=== PATIENT | male | born 1965 | race Caucasian/White ===

== ENCOUNTER 2017-10-04 15:02 | Emergency (ER) | payer OTHER ==
[~2017-10-04] VITALS: Ht 170.1 cm; Wt 63.5 kg
[~2017-10-04 15:02] MED LIST: ACIDOPHILUS1 CAP PO; ATIVAN0.5 MG PO; AUGMENTIN XR 101 TE2 PO; BUSPIRONE30 MG PO; CEFADROXIL500 M1 PO; CEPHALEXIN500 M1 PO; DELTASONE20 M1 PO; DITROPAN XL5 MG PO; FLAGYL500 MG PO; FLOMAX0.4 MG PO; HABITROL21 MG/24 H TD; LISINOPRIL10 M1 PO; LISINOPRIL5 MG PO; MOTRIN 600 MG E4 TAB PO; MULTI-VIT W/C1 CTB PO; NORMAL SALINE1000 M1 IR; OXYCODONE HCL5 M1 PO; OXYCODONE5 M1 PO; PERCOCET 325 MG1 TA2 PO; PERCOCET 325 MG1 TA5 PO; PYRIDIUM200 M1 PO; TRAMADOL HCL50 MG PO; ULTRAM50 MG PO; ZOVIRAX400 MG PO; Zofran4 MG PO
[2017-10-04 15:08] VITALS: BP 136/91
[2017-10-04] MEDS ORDERED: ZOFRAN4 MG PO (15:12)
[2017-10-04] MEDS ORDERED: AUGMENTIN 875875 MG PO (15:12)
== END 2017-10-04 15:24 | disposition home or self-care (01) ==
LOC: ED 15:02
DX: S81.852A Open bite, left lower leg, initial encounter (principal); Z88.2 Allergy status to sulfonamides; Z88.1 Allergy status to other antibiotic agents; Z88.6 Allergy status to analgesic agent; W54.0XXA Bitten by dog, initial encounter; Y93.89 Activity, other specified; Y92.89 Other specified places as the place of occurrence of the external cause; Y99.8 Other external cause status

== ENCOUNTER 2022-11-13 23:12 | Emergency (ER) | payer OTHER ==
[~2022-11-13] VITALS: Ht 167.6 cm; Wt 68.0 kg
[~2022-11-13 23:12] MED LIST changes: +AUGMENTIN 875875 MG PO; +ZOFRAN4 MG PO
[2022-11-13 23:21] VITALS: BP 195/123
[2022-11-13] MEDS ORDERED: BUSPAR15 MG PO (23:22)
[2022-11-13] MEDS ORDERED: LISINOPRIL30 MG PO (23:22)
[2022-11-13] MEDS ORDERED: HYDROXYZINE PAM25 M1 PO (23:23)
[2022-11-13] MEDS ORDERED: OMEPRAZOLE MAGN20 MG PO (23:23)
== END 2022-11-14 02:14 | disposition home or self-care (01) ==
LOC: ED 23:12
DX: S52.692A Other fracture of lower end of left ulna, initial encounter for closed fracture (principal); M54.2 Cervicalgia; Z88.2 Allergy status to sulfonamides; Z88.6 Allergy status to analgesic agent; Z88.1 Allergy status to other antibiotic agents; Z88.8 Allergy status to other drugs, medicaments and biological substances; Z90.89 Acquired absence of other organs; Z98.890 Other specified postprocedural states; F12.10 Cannabis abuse, uncomplicated; F10.10 Alcohol abuse, uncomplicated; F17.200 Nicotine dependence, unspecified, uncomplicated; V89.2XXA Person injured in unspecified motor-vehicle accident, traffic, initial encounter; Y93.89 Activity, other specified; Y92.410 Unspecified street and highway as the place of occurrence of the external cause; Y99.8 Other external cause status